=== PATIENT | female | born 1950 | race Caucasian/White ===

== ENCOUNTER → 2024-10-26 | Outpatient (CLI) | payer MEDICARE, SELFPAY ==
--- NOTE | 2024-10-26 12:54 | US_ITS ---
PROCEDURE: KIDNEY AND BLADDER 10/26/2024 REASON FOR EXAM: UTI TECHNIQUE: KIDNEY AND BLADDER COMPARISON: None FINDINGS: Kidneys: Normal renal sizes, parenchymal thicknesses, and echotextures. [place]: No hydronephrosis. Cysts or Masses: 0.8 cm x 1.1 cm 0.8 cm cyst in the left kidney. RIGHT Kidney Size: 10 cm x 4.7 cm x 3.8 cm Volume: 94.11 mL Cortical Thickness (if discernible): 11 mm (>6mm is normal) LEFT Kidney Size: 10 cm x 4.4 cm x 5.1 cm Volume: 118.18 mL Cortical Thickness (if discernible): 12 mm (>6mm is normal) The bladder wall is thickened measuring 7 mm. There is evidence of a left side of the ureteral seal measuring 9 mm. US/Kidney and Bladder IMPRESSION: Small left renal cyst. Bladder wall thickening measuring 7 mm with the left side of the ureteral seal measuring 9 mm. Reading Location: [id number]
== END | disposition home or self-care (01) ==
LOC: US 12:52
PROVIDERS: PCP Nurse Practitioner Family; Referring Provider Urology; Visit Provider Urology
DX: N39.0 Urinary tract infection, site not specified (principal)
CPT/HCPCS: 76770